=== PATIENT | male | born 1950 | race Caucasian/White ===

== ENCOUNTER 2021-03-07 10:47 | Inpatient (IN) ==
[2021-03-07] MEDS ORDERED: SODIUM CHLORIDE 0.9% 1000ML 1,000 ML IV SCH ×3 (11:30→14:19)
--- NOTE | 2021-03-07 11:41 | Emergency Department Note ---
Impression & Plan Sepsis, Anaplasmosis, Acute UTI, Elevated lactic acid level ED Provider Note NAME: BALTAZAR NAGEL AGE: 70 SEX: M : 1950 ARRIVES VIA: Walk-In INFORMANT: Patient ED PROVIDER(S): Naseem Mojica DO CHIEF COMPLAINT: fever and weak HPI: Patient is a 70-year-old male who presents the ER for not feeling well since this past Friday. He notes he felt very weak and rundown. 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 Has had fevers. Denies any chest pain or shortness of breath. Admits to vomiting. Denies any dysuria urgency or frequency but did go to the PCP and they checked a urine notes that it was infected. He was found to have a temperature of 102. He was referred over. ROS: See above HPI for pertinent positives & negatives. A total of 10 systems reviewed and were otherwise negative. PAST MEDICAL HISTORY:See Below PAST SURGICAL HISTORY:See Below FAMILY HISTORY:See Below SOCIAL HISTORY:See Below HOME MEDICATIONS:See Below ALLERGIES:See Below VITALS:See Below PHYSICAL EXAMINATION: GENERAL: Sitting up in bed, alert, ill-appearing, mild distress EYE EXAM: normal conjunctiva. PERRL and EOM's grossly intact. OROPHARYNX: no exudate, no erythema, lips, buccal mucosa, and tongue normal and mucous membranes are moist NECK: supple, no nuchal rigidity, no adenopathy, non-tender LUNGS: Clear to auscultation. Normal chest wall mechanics HEART: no murmurs, S1 normal and S2 normal ABDOMEN: abdomen soft, non-tender, normo-active bowel sounds, no masses, no rebound or guarding. UPPER EXTREMITIES: upper extremities are grossly normal. LOWER EXTREMITIES: No pitting edema. NEURO EXAM: Normal sensorium, cranial nerves II-XII grossly intact, normal speech, no gross weakness of arms, no gross weakness of legs. MEDICAL DECISION MAKING: Patient is a 70-year-old male who presents ER for fevers and weakness. IV was established blood work was obtained. Labs show no significant leukocytosis or anemia. There is a thrombocytopenia at 85. BMP with mild hyponatremia. Slight elevation of bilirubin and LFTs. Troponin was negative. TSH unremarkable. UA does show a clear UTI with nitrites. 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 Patient was given IV fluids. Patient was updated bedside. Discussed the hospitalist admitted for further work-up. Triage Nursing notes reviewed. Limited review of prior medical records performed Vital Signs: reviewed and remarkable for tachy and htn Differential diagnosis: Differential diagnosis includes etiologies such as sepsis, UTI, pneumonia, metabolic, electrolyte abnormalities, cardiac sources, intracerebral event, to xicologic, neurological, as well as others were entertained. ER treatment provided: See below Diagnostics interpreted by me: ECG: Sinus rhythm rate of 107 Normal axis Inferior Q-wave in lead III QTC 419 Cardiac Monitoring: An order was placed for continuous cardiac monitoring. The monitor shows a rate of 109 with sinus rhythm. Laboratory studies: As stated above and show below. Imaging studies: Portable AP upright 1 view the chest shows no focal infiltrate Consultation(s): Discussed with the hospitalist for further evaluation Procedures: none Critical Care: None Past Med/Surg History Medical History (Updated 03/07/21 @ 16:48 by Naseem Mojica DO) HLD (hyperlipidemia) Hypothyroidism T2DM (type 2 diabetes mellitus) Surgical History (Updated 03/07/21 @ 13:33 by Alka Johnson PA-C) History of cholecystectomy History of colonoscopy with polypectomy History of hernia surgery Family History Father Lung cancer Coronary heart disease Myocardial infarction, Onset Age: 60 Mother , 81 Myocardial infarction, Onset Age: 82 Sister COPD (chronic obstructive pulmonary disease) Brother Liver cancer Social History (Updated 03/07/21 @ 13:32 by Alka Johnson PA-C) Tobacco Type: Smokeless Tobacco (Dip or Chew) Hx Alcohol Use: Yes Alcohol type: beer Alcohol Intake Frequency: Monthly or Less Hx Substance Use: No Preferred Language: Guatemalan Communication Ability: Effective marital status: Current Living Situation: Spouse Feels Safe at Home: Yes Allergies Allergies Allergy/AdvReac Type Severity Reaction Status Date / Time No Known Allergies Allergy Unverified 03/07/21 11:49 Home Meds Home Medications Medication Instructions Recorded Confirmed aspirin 81 mg PO DAILY 03/07/21 03/07/21 atorvastatin 20 mg PO DAILY 03/07/21 03/07/21 levothyroxine 112 mcg PO DAILY 03/07/21 03/07/21 lorazepam 0.5 mg PO TID PRN 03/07/21 03/07/21 metformin 750 mg PO DAILY 03/07/21 03/07/21 multivitamin 1 tab PO DAILY 03/07/21 03/07/21 tamsulosin 0.4 mg PO DAILY 03/07/21 03/07/21 Results & Data (ED) Vital Signs Vital Signs - 24 hr 03/07/21 10:49 03/07/21 11:31 03/07/21 11:45 Temperature 36.4 C L Temperature Source Temporal Artery Scan Pulse Rate 109 H 112 H 115 H Pulse Rate [Apical] Pulse Rate from SpO2 Sensor 114 H Respiratory Rate 20 22 16 Respiratory Effort / Characteristics Respiratory Depth Respiratory Pattern Blood Pressure 154/68 H 143/85 H Blood Pressure [Right Arm] Blood Pressure Mean 96 104 Blood Pressure Mean [Right Arm] Pulse Oximetry 96 95 97 Oxygen Delivery Method Room Air Room Air Sepsis Recent Fever Within 48 Hours Yes Sepsis New/Unexplained Change in Mental Status Yes Sepsis Action Taken by Nursing No Action Required 03/07/21 11:48 03/07/21 11:51 03/07/21 12:00 Temperature Temperature Source Pulse Rate 108 H 108 H Pulse Rate [Apical] 112 H Pulse Rate from SpO2 Sensor 109 H 109 H Respiratory Rate 20 20 22 Respiratory Effort / Characteristics Non-Labored Spontaneous Respiratory Depth Normal Respiratory Pattern Regular Blood Pressure 141/75 H Blood Pressure [Right Arm] 143/85 H Blood Pressure Mean 97 Blood Pressure Mean [Right Arm] 104 Pulse Oximetry 92 96 93 Oxygen Delivery Method Room Air Sepsis Recent Fever Within 48 Hours Sepsis New/Unexplained Change in Mental Status Sepsis Action Taken by Nursing 03/07/21 12:01 03/07/21 12:30 03/07/21 12:31 Temperature Temperature Source Pulse Rate 105 H 106 H 105 H Pulse Rate [Apical] Pulse Rate from SpO2 Sensor 105 H 106 H 104 H Respiratory Rate 20 20 20 Respiratory Effort / Characteristics Respiratory Depth Respiratory Pattern Blood Pressure 143/75 H Blood Pressure [Right Arm] Blood Pressure Mean 97 Blood Pressure Mean [Right Arm] Pulse Oximetry 93 95 93 Oxygen Delivery Method Sepsis Recent Fever Within 48 Hours Sepsis New/Unexplained Change in Mental Status Sepsis Action Taken by Nursing Laboratory Data Result diagrams: 03/07/21 11:31 03/07/21 15:52 Lab Results 03/07/21 03/07/21 03/07/21 Range/Units 11:21 11:21 11:21 WBC (4.8-10.8) K/uL RBC (4.7-6.1) M/uL Hgb (14.0-18.0) g/dL Hct (42-52) % MCV (80-100) fL MCH (25-34) pg MCHC (32-36) g/dL RDW Std Deviation (36.4-46.3) fL RDW Coeff of Rosario (11.5-14.5) % Plt Count (130-400) K/uL MPV (7.4-10.4) fL Immature Gran % (Auto) % Neut % (Auto) % Lymph % (Auto) % [place] % (Auto) % Eos % (Auto) % Baso % (Auto) % Neut # (Auto) (1.4-6.5) K/uL Lymph # (Auto) (1.2-3.4) K/uL [place] # (Auto) (0.11-0.59) K/uL Eos # (Auto) (0-0.5) K/uL Baso # (Auto) (0-0.2) K/uL Immature Gran # (Auto) (0.00-0.02) K/uL Platelet Estimate (Normal) Echinocytes Peripher Smr Path Cons PT (9.0-12.0) Seconds INR (0.9-1.1) APTT (21.0-31.0) Seconds PTT Ratio Sodium (136-145) mmol/L Potassium (3.5-5.1) mmol/L Chloride (98-107) mmol/L Carbon Dioxide (21-32) mmol/L Anion Gap (3-11) BUN (7-18) mg/dl Creatinine (0.6-1.4) mg/dl Est Cr Clr Drug Dosing ml/min Est GFR ( Amer) ml/min Est GFR (Non-Af Amer) ml/min BUN/Creatinine Ratio (10-20) Glucose (70-99) mg/dl Osmolality (280-300) mOsm/kg Lactate (0.4-2.0) mmol/L Calcium (8.5-10.1) mg/dl Magnesium (1.8-2.4) mg/dl Total Bilirubin (0.2-1) mg/dl Direct Bilirubin (0-0.2) mg/dl AST (15-37) U/L ALT (12-78) U/L Alkaline Phosphatase (45-117) U/L Troponin I (0-0.045) ng/ml Total Protein (6.4-8.2) gm/dl Albumin (3.4-5.0) gm/dl Globulin (2.5-4.0) gm/dl Albumin/Globulin Ratio (0.9-2) Procalcitonin (0-0.5) ng/ml TSH (0.300-4.500) uIu/ml Urine Color [place] Urine Appearance Clear (Clear) Urine pH 5.5 (4.5-7.5) Ur Specific [place] 1.029 (1.000-1.030) Urine Protein 2+ H (Negative) Urine Glucose (UA) Negative (Negative) Urine Ketones Trace H (Negative) Urine Blood 2+ H (Negative) Urine Nitrite Positive A (Negative) Urine Bilirubin 1+ H (Negative) Urine Urobilinogen Positive H (Negative) Ur Leukocyte Esterase Trace H (Negative) Urine WBC (Auto) 1-5 (0-5) /hpf Urine RBC (Auto) 10-30 H (0-4) /hpf U Hyaline Cast (Auto) 5-10 H (0-5) /lpf U Epithel Cells (Auto) 10-20 H (0-5) /lpf Urine Bacteria (Auto) Negative (Negative) Urine Osmolality 919 H (500-800) mOsm/kg Ur Random Sodium 23 mmol/L Anaplasma Smear A. phagocytophilum DNA Anaplasma Comment Lyme Disease IgG Ab (Negative) Lyme Disease IgM Ab (Negative) COVID-19 Eval Order SARS-CoV-2 (PCR) (Negative) 03/07/21 03/07/21 03/07/21 Range/Units 11:26 11:26 11:31 WBC 6.10 (4.8-10.8) K/uL RBC 4.87 (4.7-6.1) M/uL Hgb 15.0 (14.0-18.0) g/dL Hct 41.8 L (42-52) % MCV 85.8 (80-100) fL MCH 30.8 (25-34) pg MCHC 35.9 (32-36) g/dL RDW Std Deviation 43.3 (36.4-46.3) fL RDW Coeff of Rosario 13.7 (11.5-14.5) % Plt Count 85 L (130-400) K/uL MPV 10.3 (7.4-10.4) fL Immature Gran % (Auto) 0.2 % Neut % (Auto) 82.0 % Lymph % (Auto) 11.5 % [place] % (Auto) 6.1 % Eos % (Auto) 0.0 % Baso % (Auto) 0.2 % Neut # (Auto) 5.01 (1.4-6.5) K/uL Lymph # (Auto) 0.70 L (1.2-3.4) K/uL [place] # (Auto) 0.37 (0.11-0.59) K/uL Eos # (Auto) 0.00 (0-0.5) K/uL Baso # (Auto) 0.01 (0-0.2) K/uL Immature Gran # (Auto) 0.01 (0.00-0.02) K/uL Platelet Estimate Decreased L (Normal) Echinocytes 2+ Peripher Smr Path Cons PT (9.0-12.0) Seconds INR (0.9-1.1) APTT (21.0-31.0) Seconds PTT Ratio Sodium (136-145) mmol/L Potassium (3.5-5.1) mmol/L Chloride (98-107) mmol/L Carbon Dioxide (21-32) mmol/L Anion Gap (3-11) BUN (7-18) mg/dl Creatinine (0.6-1.4) mg/dl Est Cr Clr Drug Dosing ml/min Est GFR ( Amer) ml/min Est GFR (Non-Af Amer) ml/min BUN/Creatinine Ratio (10-20) Glucose (70-99) mg/dl Osmolality (280-300) mOsm/kg Lactate (0.4-2.0) mmol/L Calcium (8.5-10.1) mg/dl Magnesium (1.8-2.4) mg/dl Total Bilirubin (0.2-1) mg/dl Direct Bilirubin (0-0.2) mg/dl AST (15-37) U/L ALT (12-78) U/L Alkaline Phosphatase (45-117) U/L Troponin I (0-0.045) ng/ml Total Protein (6.4-8.2) gm/dl Albumin (3.4-5.0) gm/dl Globulin (2.5-4.0) gm/dl Albumin/Globulin Ratio (0.9-2) Procalcitonin (0-0.5) ng/ml TSH (0.300-4.500) uIu/ml Urine Color Urine Appearance (Clear) Urine pH (4.5-7.5) Ur Specific [place] (1.000-1.030) Urine Protein (Negative) Urine Glucose (UA) (Negative) Urine Ketones (Negative) Urine Blood (Negative) Urine Nitrite (Negative) Urine Bilirubin (Negative) Urine Urobilinogen (Negative) Ur Leukocyte Esterase (Negative) Urine WBC (Auto) (0-5) /hpf Urine RBC (Auto) (0-4) /hpf U Hyaline Cast (Auto) (0-5) /lpf U Epithel Cells (Auto) (0-5) /lpf Urine Bacteria (Auto) (Negative) Urine Osmolality (500-800) mOsm/kg Ur Random Sodium mmol/L Anaplasma Smear See Comment A A. phagocytophilum DNA Anaplasma Comment Pos for Anaplasma Lyme Disease IgG Ab (Negative) Lyme Disease IgM Ab (Negative) COVID-19 Eval Order Covid19 at [facility] SARS-CoV-2 (PCR) NEGATIVE (Negative) 03/07/21 03/07/21 03/07/21 Range/Units 11:31 11:31 11:31 WBC (4.8-10.8) K/uL RBC (4.7-6.1) M/uL Hgb (14.0-18.0) g/dL Hct (42-52) % MCV (80-100) fL MCH (25-34) pg MCHC (32-36) g/dL RDW Std Deviation (36.4-46.3) fL RDW Coeff of Rosario (11.5-14.5) % Plt Count (130-400) K/uL MPV (7.4-10.4) fL Immature Gran % (Auto) % Neut % (Auto) % Lymph % (Auto) % [place] % (Auto) % Eos % (Auto) % Baso % (Auto) % Neut # (Auto) (1.4-6.5) K/uL Lymph # (Auto) (1.2-3.4) K/uL [place] # (Auto) (0.11-0.59) K/uL Eos # (Auto) (0-0.5) K/uL Baso # (Auto) (0-0.2) K/uL Immature Gran # (Auto) (0.00-0.02) K/uL Platelet Estimate (Normal) Echinocytes Peripher Smr Path Cons PT 10.4 (9.0-12.0) Seconds INR 1.0 (0.9-1.1) APTT 30.9 (21.0-31.0) Seconds PTT Ratio 1.2 Sodium 126 L (136-145) mmol/L Potassium 4.2 (3.5-5.1) mmol/L Chloride 93 L (98-107) mmol/L Carbon Dioxide 26 (21-32) mmol/L Anion Gap 7.0 (3-11) BUN 18 (7-18) mg/dl Creatinine 1.08 (0.6-1.4) mg/dl Est Cr Clr Drug Dosing 57.8 ml/min Est GFR ( Amer) 79.1 ml/min Est GFR (Non-Af Amer) 68.2 ml/min BUN/Creatinine Ratio 16.3 (10-20) Glucose 146 H (70-99) mg/dl Osmolality (280-300) mOsm/kg Lactate 2.5 H* (0.4-2.0) mmol/L Calcium 8.6 (8.5-10.1) mg/dl Magnesium 2.4 (1.8-2.4) mg/dl Total Bilirubin 2.1 H (0.2-1) mg/dl Direct Bilirubin (0-0.2) mg/dl AST 94 H (15-37) U/L ALT 49 (12-78) U/L Alkaline Phosphatase 63 (45-117) U/L Troponin I < 0.015 (0-0.045) ng/ml Total Protein 7.3 (6.4-8.2) gm/dl Albumin 3.6 (3.4-5.0) gm/dl Globulin 3.7 (2.5-4.0) gm/dl Albumin/Globulin Ratio 1.0 (0.9-2) Procalcitonin (0-0.5) ng/ml TSH (0.300-4.500) uIu/ml Urine Color Urine Appearance (Clear) Urine pH (4.5-7.5) Ur Specific [place] (1.000-1.030) Urine Protein (Negative) Urine Glucose (UA) (Negative) Urine Ketones (Negative) Urine Blood (Negative) Urine Nitrite (Negative) Urine Bilirubin (Negative) Urine Urobilinogen (Negative) Ur Leukocyte Esterase (Negative) Urine WBC (Auto) (0-5) /hpf Urine RBC (Auto) (0-4) /hpf U Hyaline Cast (Auto) (0-5) /lpf U Epithel Cells (Auto) (0-5) /lpf Urine Bacteria (Auto) (Negative) Urine Osmolality (500-800) mOsm/kg Ur Random Sodium mmol/L Anaplasma Smear A. phagocytophilum DNA Anaplasma Comment Lyme Disease IgG Ab (Negative) Lyme Disease IgM Ab (Negative) COVID-19 Eval Order SARS-CoV-2 (PCR) (Negative) 03/07/21 03/07/21 03/07/21 Range/Units 11:31 11:31 11:31 WBC (4.8-10.8) K/uL RBC (4.7-6.1) M/uL Hgb (14.0-18.0) g/dL Hct (42-52) % MCV (80-100) fL MCH (25-34) pg MCHC (32-36) g/dL RDW Std Deviation (36.4-46.3) fL RDW Coeff of Rosario (11.5-14.5) % Plt Count (130-400) K/uL MPV (7.4-10.4) fL Immature Gran % (Auto) % Neut % (Auto) % Lymph % (Auto) % [place] % (Auto) % Eos % (Auto) % Baso % (Auto) % Neut # (Auto) (1.4-6.5) K/uL Lymph # (Auto) (1.2-3.4) K/uL [place] # (Auto) (0.11-0.59) K/uL Eos # (Auto) (0-0.5) K/uL Baso # (Auto) (0-0.2) K/uL Immature Gran # (Auto) (0.00-0.02) K/uL Platelet Estimate (Normal) Echinocytes Peripher Smr Path Cons PT (9.0-12.0) Seconds INR (0.9-1.1) APTT (21.0-31.0) Seconds PTT Ratio Sodium (136-145) mmol/L Potassium (3.5-5.1) mmol/L Chloride (98-107) mmol/L Carbon Dioxide (21-32) mmol/L Anion Gap (3-11) BUN (7-18) mg/dl Creatinine (0.6-1.4) mg/dl Est Cr Clr Drug Dosing ml/min Est GFR ( Amer) ml/min Est GFR (Non-Af Amer) ml/min BUN/Creatinine Ratio (10-20) Glucose (70-99) mg/dl Osmolality 269 L (280-300) mOsm/kg Lactate (0.4-2.0) mmol/L Calcium (8.5-10.1) mg/dl Magnesium (1.8-2.4) mg/dl Total Bilirubin (0.2-1) mg/dl Direct Bilirubin (0-0.2) mg/dl AST (15-37) U/L ALT (12-78) U/L Alkaline Phosphatase (45-117) U/L Troponin I (0-0.045) ng/ml Total Protein (6.4-8.2) gm/dl Albumin (3.4-5.0) gm/dl Globulin (2.5-4.0) gm/dl Albumin/Globulin Ratio (0.9-2) Procalcitonin 0.42 (0-0.5) ng/ml TSH (0.300-4.500) uIu/ml Urine Color Urine Appearance (Clear) Urine pH (4.5-7.5) Ur Specific [place] (1.000-1.030) Urine Protein (Negative) Urine Glucose (UA) (Negative) Urine Ketones (Negative) Urine Blood (Negative) Urine Nitrite (Negative) Urine Bilirubin (Negative) Urine Urobilinogen (Negative) Ur Leukocyte Esterase (Negative) Urine WBC (Auto) (0-5) /hpf Urine RBC (Auto) (0-4) /hpf U Hyaline Cast (Auto) (0-5) /lpf U Epithel Cells (Auto) (0-5) /lpf Urine Bacteria (Auto) (Negative) Urine Osmolality (500-800) mOsm/kg Ur Random Sodium mmol/L Anaplasma Smear Cancelled A. phagocytophilum DNA Anaplasma Comment Lyme Disease IgG Ab (Negative) Lyme Disease IgM Ab (Negative) COVID-19 Eval Order SARS-CoV-2 (PCR) (Negative) 03/07/21 03/07/21 03/07/21 Range/Units 11:31 11:31 11:31 WBC (4.8-10.8) K/uL RBC (4.7-6.1) M/uL Hgb (14.0-18.0) g/dL Hct (42-52) % MCV (80-100) fL MCH (25-34) pg MCHC (32-36) g/dL RDW Std Deviation (36.4-46.3) fL RDW Coeff of Rosario (11.5-14.5) % Plt Count (130-400) K/uL MPV (7.4-10.4) fL Immature Gran % (Auto) % Neut % (Auto) % Lymph % (Auto) % [place] % (Auto) % Eos % (Auto) % Baso % (Auto) % Neut # (Auto) (1.4-6.5) K/uL Lymph # (Auto) (1.2-3.4) K/uL [place] # (Auto) (0.11-0.59) K/uL Eos # (Auto) (0-0.5) K/uL Baso # (Auto) (0-0.2) K/uL Immature Gran # (Auto) (0.00-0.02) K/uL Platelet Estimate (Normal) Echinocytes Peripher Smr Path Cons PT (9.0-12.0) Seconds INR (0.9-1.1) APTT (21.0-31.0) Seconds PTT Ratio Sodium (136-145) mmol/L Potassium (3.5-5.1) mmol/L Chloride (98-107) mmol/L Carbon Dioxide (21-32) mmol/L Anion Gap (3-11) BUN (7-18) mg/dl Creatinine (0.6-1.4) mg/dl Est Cr Clr Drug Dosing ml/min Est GFR ( Amer) ml/min Est GFR (Non-Af Amer) ml/min BUN/Creatinine Ratio (10-20) Glucose (70-99) mg/dl Osmolality (280-300) mOsm/kg Lactate (0.4-2.0) mmol/L Calcium (8.5-10.1) mg/dl Magnesium (1.8-2.4) mg/dl Total Bilirubin (0.2-1) mg/dl Direct Bilirubin (0-0.2) mg/dl AST (15-37) U/L ALT (12-78) U/L Alkaline Phosphatase (45-117) U/L Troponin I (0-0.045) ng/ml Total Protein (6.4-8.2) gm/dl Albumin (3.4-5.0) gm/dl Globulin (2.5-4.0) gm/dl Albumin/Globulin Ratio (0.9-2) Procalcitonin (0-0.5) ng/ml TSH 2.240 (0.300-4.500) uIu/ml Urine Color Urine Appearance (Clear) Urine pH (4.5-7.5) Ur Specific [place] (1.000-1.030) Urine Protein (Negative) Urine Glucose (UA) (Negative) Urine Ketones (Negative) Urine Blood (Negative) Urine Nitrite (Negative) Urine Bilirubin (Negative) Urine Urobilinogen (Negative) Ur Leukocyte Esterase (Negative) Urine WBC (Auto) (0-5) /hpf Urine RBC (Auto) (0-4) /hpf U Hyaline Cast (Auto) (0-5) /lpf U Epithel Cells (Auto) (0-5) /lpf Urine Bacteria (Auto) (Negative) Urine Osmolality (500-800) mOsm/kg Ur Random Sodium mmol/L Anaplasma Smear A. phagocytophilum DNA Cancelled Anaplasma Comment Lyme Disease IgG Ab Negative (Negative) Lyme Disease IgM Ab Negative (Negative) COVID-19 Eval Order SARS-CoV-2 (PCR) (Negative) 03/07/21 Range/Units 11:31 WBC (4.8-10.8) K/uL RBC (4.7-6.1) M/uL Hgb (14.0-18.0) g/dL Hct (42-52) % MCV (80-100) fL MCH (25-34) pg MCHC (32-36) g/dL RDW Std Deviation (36.4-46.3) fL RDW Coeff of Rosario (11.5-14.5) % Plt Count (130-400) K/uL MPV (7.4-10.4) fL Immature Gran % (Auto) % Neut % (Auto) % Lymph % (Auto) % [place] % (Auto) % Eos % (Auto) % Baso % (Auto) % Neut # (Auto) (1.4-6.5) K/uL Lymph # (Auto) (1.2-3.4) K/uL [place] # (Auto) (0.11-0.59) K/uL Eos # (Auto) (0-0.5) K/uL Baso # (Auto) (0-0.2) K/uL Immature Gran # (Auto) (0.00-0.02) K/uL Platelet Estimate (Normal) Echinocytes Peripher Smr Path Cons PT (9.0-12.0) Seconds INR (0.9-1.1) APTT (21.0-31.0) Seconds PTT Ratio Sodium (136-145) mmol/L Potassium (3.5-5.1) mmol/L Chloride (98-107) mmol/L Carbon Dioxide (21-32) mmol/L Anion Gap (3-11) BUN (7-18) mg/dl Creatinine (0.6-1.4) mg/dl Est Cr Clr Drug Dosing ml/min Est GFR ( Amer) ml/min Est GFR (Non-Af Amer) ml/min BUN/Creatinine Ratio (10-20) Glucose (70-99) mg/dl Osmolality (280-300) mOsm/kg Lactate (0.4-2.0) mmol/L Calcium (8.5-10.1) mg/dl Magnesium (1.8-2.4) mg/dl Total Bilirubin (0.2-1) mg/dl Direct Bilirubin 0.7 H (0-0.2) mg/dl AST (15-37) U/L ALT (12-78) U/L Alkaline Phosphatase (45-117) U/L Troponin I (0-0.045) ng/ml Total Protein (6.4-8.2) gm/dl Albumin (3.4-5.0) gm/dl Globulin (2.5-4.0) gm/dl Albumin/Globulin Ratio (0.9-2) Procalcitonin (0-0.5) ng/ml TSH (0.300-4.500) uIu/ml Urine Color Urine Appearance (Clear) Urine pH (4.5-7.5) Ur Specific [place] (1.000-1.030) Urine Protein (Negative) Urine Glucose (UA) (Negative) Urine Ketones (Negative) Urine Blood (Negative) Urine Nitrite (Negative) Urine Bilirubin (Negative) Urine Urobilinogen (Negative) Ur Leukocyte Esterase (Negative) Urine WBC (Auto) (0-5) /hpf Urine RBC (Auto) (0-4) /hpf U Hyaline Cast (Auto) (0-5) /lpf U Epithel Cells (Auto) (0-5) /lpf Urine Bacteria (Auto) (Negative) Urine Osmolality (500-800) mOsm/kg Ur Random Sodium mmol/L Anaplasma Smear A. phagocytophilum DNA Anaplasma Comment Lyme Disease IgG Ab (Negative) Lyme Disease IgM Ab (Negative) COVID-19 Eval Order SARS-CoV-2 (PCR) (Negative) Administered Medications Discontinued Medications Sodium Chloride (Nss 1000ml) 1,000 mls @ 999 mls/hr IV .Q1H1M DORIAN Stop: 03/07/21 13:27 Last Infusion: 03/07/21 12:48 Dose: 0 mls/hr Documented by: [id number] Admin: 03/07/21 11:47 Dose: 999 mls/hr Documented by: [id number] Sodium Chloride (Nss 1000ml) 1,000 mls @ 999 mls/hr IV .Q1H1M DORIAN Stop: 03/07/21 12:28 Last Infusion: 03/07/21 12:48 Dose: 0 mls/hr Documented by: [id number] Admin: 03/07/21 11:47 Dose: 999 mls/hr Documented by: [id number] Ceftriaxone Sodium (Rocephin) 2,000 mg in 70 mls @ 140 mls/hr IV NOW STA Stop: 03/07/21 13:29 Last Infusion: 03/07/21 13:43 Dose: 0 mls/hr Documented by: [id number] Admin: 03/07/21 13:13 Dose: 140 mls/hr Documented by: [id number] Imaging Data Radiologist's Impression: Chest X-Ray 03/07/21 11:27 XR chest 1V portable CLINICAL HISTORY: SEPSIS COMPARISON STUDY: 03/08/2013 FINDINGS: The cardiac and mediastinal contours are normal. There is no evidence of focal pulmonary consolidation. There is no evidence of failure. No pleural effusions are visualized.[ IMPRESSION: No active disease in the chest. ACT 112: Negative or not required by law. Electronically signed by: Josué Pratt M.D. 03/07/2021 12:03 PM Discharge Plan Visit Data Chief Complaint: Infection Stated Complaint: INFECTON ED Provider: Naseem Mojica Discharge Problem: Sepsis, Anaplasmosis, Acute UTI, Elevated lactic acid level Patient Disposition: Admitted As Inpatient Discharge Instructions Interventions: ED Discharge Assessment Last Done: 03/07/21 13:52 Discharge Problem: Sepsis Qualifiers: Sepsis type: sepsis due to unspecified organism Sepsis acute organ dysfunction status: unspecified Qualified Code(s): A41.9 - Sepsis, unspecified organism
[2021-03-07 11:42] LABS: Appearance Urine Clear (Clear); Bacteria Urine Automated Negative (Negative); Blood Urine 2+ (Negative); Color Urine Orange; Glucose Urine UA Negative (Negative); Ketones Urine Trace (Negative); Leukocyte Esterase Urine Trace (Negative); Nitrite Urine Positive (Negative); Protein Urine 2+ (Negative); Specific Gravity Urine 1.029 (1.000-1.030); Urobilinogen Urine Positive (Negative); pH Urine 5.5 (4.5-7.5)
[2021-03-07 12:05] LABS: Bilirubin Urine 1+ (Negative)
--- NOTE | 2021-03-07 12:05 | XRay Report ---
XR chest 1V portable CLINICAL HISTORY: SEPSIS COMPARISON STUDY: 03/08/2013 FINDINGS: The cardiac and mediastinal contours are normal. There is no evidence of focal pulmonary co nsolidation. There is no evidence of failure. No pleural effusions are visualized.[ IMPRESSION: No active disease in the chest. ACT 112: Negative or not required by law. Electronically signed by: Josué Pratt M.D. 03/07/2021 12:03 PM
[2021-03-07 12:06] LABS: Alanine Aminotransferase 49 U/L (12-78); Albumin Level 3.6 gm/dl (3.4-5.0); Aspartate Aminotransferase 94 U/L (15-37); BUN Creatinine Ratio 16.3 (10-20); Blood Urea Nitrogen 18 mg/dl (7-18); Calcium 8.6 mg/dl (8.5-10.1); Carbon Dioxide 26 mmol/L (21-32); Chloride 93 mmol/L (98-107); Creatinine Clr Calc Pharmacy 57.8 ml/min; Est GFR (African American) 79.1 ml/min; Est GFR (Non-African American) 68.2 ml/min; Glucose 146 mg/dl (70-99); Magnesium 2.4 mg/dl (1.8-2.4); Potassium 4.2 mmol/L (3.5-5.1); Sodium 126 mmol/L (136-145)
[2021-03-07 12:07] LABS: Partial Thromboplastin Ratio 1.2; Partial Thromboplastin Time 30.9 Seconds (21.0-31.0); Prothrombin Time 10.4 Seconds (9.0-12.0)
[2021-03-07 12:11] LABS: Alkaline Phosphatase 63 U/L (45-117); Bilirubin,Total 2.1 mg/dl (0.2-1); Globulin 3.7 gm/dl (2.5-4.0); Total Protein 7.3 gm/dl (6.4-8.2); Troponin I < 0.015 ng/ml (0-0.045)
[2021-03-07 12:19] LABS: Basophils # (auto) 0.01 K/uL (0-0.2); Basophils % (auto) 0.2 %; Echinocytes 2+; Hematocrit (blood only) 41.8 % (42-52); Immature Granulocytes # (auto) 0.01 K/uL (0.00-0.02); Immature Granulocytes % (auto) 0.2 %; Lymphocytes % (auto) 11.5 %; Mean Corpuscular Hemoglobin 30.8 pg (25-34); Mean Corpuscular Hgb Conc 35.9 g/dL (32-36); Mean Corpuscular Volume 85.8 fL (80-100); Mean Platelet Volume 10.3 fL (7.4-10.4); Monocytes # (auto) 0.37 K/uL (0.11-0.59); Monocytes % (auto) 6.1 %; Neutrophils # (auto) 5.01 K/uL (1.4-6.5); Platelet Count 85 K/uL (130-400); Platelet Estimate Decreased (Normal); RDW Coefficient of Variation 13.7 % (11.5-14.5); RDW Standard Deviation 43.3 fL (36.4-46.3); Red Blood Count 4.87 M/uL (4.7-6.1)
[2021-03-07] MEDS ORDERED: cefTRIAXone SODIUM 2,000 MG/70 ML BAG IV STA (13:00)
--- NOTE | 2021-03-07 13:09 | History & Physical Report ---
Date of Service March 07, 2021 Assessment & Plan (1) Anaplasmosis: (2) Sepsis: (3) Infectious encephalopathy: (4) Lactic acidosis: This is a 70 yr old M who has a significant PMH of T2DM, HLD, and hypothyroidism who presents to ED due to feeling tired and weak x 5 days. Pt being admitted due to possible sepsis. Elevated temp in clinic 102F, and tachycardia in ED. His WBC & RR WNL. Pt with other indicators of sepsis including lactic acidosis, low platelets, elevated total bili and procalcitonin. Received 2 L of IVF in ED. 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 rash, last known tick bite 5 days ago admit to PCU continue IV rocephin 2g daily lyme and anaplasma screen ordered --> anaplasma smear + for intracytoplasmic inclusion bodies - add doxycycline 100mg po bid urine/blood cultures pending IVF 110 cc/hr x 1 L repeat bmp @ 1600 and q6h lactic acid repeat ordered - now 1.8 neuro checks q4h (5) Acute hyponatremia: hyponatremia Hypochloremia Na 126 likely in setting of acute dehydration due to poor po intake serum osm, urine osm, urine na received 2L of IVF repeat bmp @ 1600 and q6 likely playing factor into encephalopathy (6) Thrombocytopenia: plt 85 2/2 to anaplasmosis monitor closely (7) T2DM (type 2 diabetes mellitus): Hold Metformin Insulin sliding scale per protocol A1c in a.m., last on 11/02/2020 6.3 (8) Hypothyroidism: Continue levothyroxine Check TSH (9) HLD (hyperlipidemia): Continue atorvastatin Monitor LFTs, AST mildly elevated at 94 (10) DVT prophylaxis: SQ Lovenox, monitor plt Dispo:PCU PCP: Dr. Mayra Bearden FULL CODE Patient was seen and examined in collaboration with Dr. Dupree, please see addendum History of Present Illness Chief Complaint: Tired and weak x 5 days. Primary Care Provider: Chad Oh DO This is a 70 yr old M who has a significant PMH of T2DM, HLD, and hypothyroidism who presents to ED due to feeling tired and weak x 5 days. Sx started on Friday when he became increasingly weak and tired. His pulled off a tick on his right leg. She states it was attached but wasn't engorged. Overall poor appetite and at bedside states, "not acting himself." She feels his thinking is off and having trouble concentrating. She notices he is getting more confused. He denies fever but did have fever in clinic today of 102. Pt states he is very uncomfortable. Occasionally feels dizzy. He c/o in creased urinary urgency. He denies chills, sweats, syncope, cough, URI sx, chest pain, sob, palpitations, diarrhea, abdominal pain, dysuria and hematuria. He has never felt like this in the past. Patient was seen in clinic today secondary to above symptoms and was referred to ED due to concern for possible urosepsis secondary to abnormal urinalysis and patient meeting SIRS criteria. Of significance he was also seen in clinic on 02/23 secondary to urinary hesitancy in which he was started on Flomax. In ED patient remained hemodynamically stable although he was tachycardic. Patient did meet sepsis criteria on admission secondary to documented fever in clinic, tachycardia, thrombocytopenia, lactic acid 2.5 and total bili 2.1. His procalcitonin was mildly elevated at 0.42. His urinalysis was positive for protein, nitrates, bilirubin leukocyte esterase, RBC. Chest x-ray was negative for acute abnormality. His Covid 19 swab was negative. In ED he received 2 L of IV fluid as well as 2 g IV Rocephin. Allergies Allergy/AdvReac Type Severity Reaction Status Date / Time No Known Allergies Allergy Unverified 03/07/21 11:49 Home Medications Medication Instructions Recorded Confirmed Type aspirin 81 mg PO DAILY 03/07/21 03/07/21 History atorvastatin 20 mg PO DAILY 03/07/21 03/07/21 History levothyroxine 112 mcg PO DAILY 03/07/21 03/07/21 History lorazepam 0.5 mg PO TID PRN 03/07/21 03/07/21 History metformin 750 mg PO DAILY 03/07/21 03/07/21 History multivitamin 1 tab PO DAILY 03/07/21 03/07/21 History tamsulosin 0.4 mg PO DAILY 03/07/21 03/07/21 History Past Med/Surg History Medical History (Updated 03/07/21 @ 16:48 by Naseem Mojica DO) HLD (hyperlipidemia) Hypothyroidism T2DM (type 2 diabetes mellitus) Surgical History (Updated 03/07/21 @ 13:33 by Alka Johnson PA-C) History of cholecystectomy History of colonoscopy with polypectomy History of hernia surgery Family History Father Lung cancer Coronary heart disease Myocardial infarction, Onset Age: 60 Mother , 81 Myocardial infarction, Onset Age: 82 Sister COPD (chronic obstructive pulmonary disease) Brother Liver cancer Social History (Updated 03/07/21 @ 13:32 by Alka Johnson PA-C) Tobacco Type: Smokeless Tobacco (Dip or Chew) Hx Alcohol Use: Yes Alcohol type: beer Alcohol Intake Frequency: Monthly or Less Hx Substance Use: No Preferred Language: Greenlandic Communication Ability: Effective marital status: Current Living Situation: Spouse Feels Safe at Home: Yes Review of Systems Review of Systems: All systems reviewed & are unremarkable except as noted in HPI & below Physical Exam Physical Exam: Constitutional: WD/WN, vitals as above, appears uncomfortable but no acute distress NAD, sitting up in bed, answers questions appropriately Head: Normocephalic, Atraumatic Eyes: PERRL, conjunctivae normal, anicteric sclerae ENMT: external ear and nose normal, oropharynx normal Neck: trachea midline, no thyromegaly normal visual inspection Respiratory: normal respiratory effort, lungs clear to auscultation, no wheeze, rales, rhonchi. Normal insp/exp effort, no accessory muscle use Cardiovascular: Tachycardic rate, regular rhythm, no murmur, no edema Vessels: no JVD or carotid bruit Chest: normal inspection of chest Abdomen: Protuberant abdomen, normal bowel sounds, soft, nontender, no hepatosplenomegaly appreciated Musculoskeletal: no cyanosis or clubbing, extremities motor strength 5/5 Skin: l ividio reticularis of lower ext, no rashes, warm and dry normal turgor Neurologic: PERRL, EOMI, accommodation nl, no face palsy, no dysarthria CN's II-XI intact bilaterally and moves all extremities Psychiatric: A+Ox3 except does not know the year, euthymic affect Lymphatic: no cervical or axillary lymphadenopathy : deferred Results & Data Results & Data ([facility]) Vital Signs (Past 12 Hours) Vital Signs Temp Pulse Pulse Resp BP BP Pulse Ox 03/07/21 12:31 105 H 20 93 03/07/21 12:30 106 H 20 143/75 H 95 03/07/21 12:01 105 H 20 93 03/07/21 12:00 108 H 22 141/75 H 93 03/07/21 11:51 108 H 20 96 03/07/21 11:48 112 H 20 143/85 H 92 03/07/21 11:45 115 H 16 143/85 H 97 03/07/21 11:31 112 H 22 95 03/07/21 10:49 36.4 C L 109 H 20 154/68 H 96 Diagnostic Findings Chest X-Ray 03/07/21 11:27 XR chest 1V portable CLINICAL HISTORY: SEPSIS COMPARISON STUDY: 03/08/2013 FINDINGS: The cardiac and mediastinal contours are normal. There is no evidence of focal pulmonary consolidation. There is no evidence of failure. No pleural effusions are visualized.[ IMPRESSION: No active disease in the chest. ACT 112: Negative or not required by law. Electronically signed by: Josué Pratt M.D. 03/07/2021 12:03 PM Medications Administered Sodium Chloride (Nss 1000ml) 1,000 mls @ 999 mls/hr IV .Q1H1M DORIAN Stop: 03/07/21 13:27 Last Infusion: 03/07/21 12:48 Dose: 0 mls/hr Documented by: [id number] Admin: 03/07/21 11:47 Dose: 999 mls/hr Documented by: [id number] Discontinued Medications Sodium Chloride (Nss 1000ml) 1,000 mls @ 999 mls/hr IV .Q1H1M DORIAN Stop: 03/07/21 12:28 Last Infusion: 03/07/21 12:48 Dose: 0 mls/hr Documented by: [id number] Admin: 03/07/21 11:47 Dose: 999 mls/hr Documented by: [id number] ECG Rate (beats per minute): 107 Rhythm: sinus tachycardia COVID-19 Results Results COVID-19 Adm Lab Results: RBC 4.87 M/uL (4.7-6.1) 03/07/21 WBC 6.10 K/uL (4.8-10.8) 03/07/21 Hgb 15.0 g/dL (14.0-18.0) 03/07/21 Hct 41.8 % (42-52) L 03/07/21 Plt Count 85 K/uL (130-400) L 03/07/21 Neutrophils (%) (Auto) 82.0 % 03/07/21 Lymphocytes (%) (Auto) 11.5 % 03/07/21 Monocytes # (Auto) 0.37 K/uL (0.11-0.59) 03/07/21 Eosinophils # (Auto) 0.00 K/uL (0-0.5) 03/07/21 Immature Granulocyte % (Auto) 0.2 % 03/07/21 Neutrophils # (Auto) 5.01 K/uL (1.4-6.5) 03/07/21 Lymphocytes # (Auto) 0.70 K/uL (1.2-3.4) L 03/07/21 Monocytes # (Auto) 0.37 K/uL (0.11-0.59) 03/07/21 Eosinophils # (Auto) 0.00 K/uL (0-0.5) 03/07/21 Basophils # (Auto) 0.01 K/uL (0-0.2) 03/07/21 Immature Granulocyte # (Auto) 0.01 K/uL (0.00-0.02) 03/07/21 Echinocytes 2+ 03/07/21 Na 130 mmol/L (136-145) L 03/07/21 K 4.0 mmol/L (3.5-5.1) 03/07/21 Cl 99 mmol/L (98-107) 03/07/21 CO2 25 mmol/L (21-32) 03/07/21 Anion Gap 6.0 (3-11) 03/07/21 BUN 16 mg/dl (7-18) 03/07/21 Creatinine 0.89 mg/dl (0.6-1.4) 03/07/21 BUN/Creatinine Ratio 17.9 (10-20) 03/07/21 Glucose Level 135 mg/dl (70-99) H 03/07/21 Ca 7.8 mg/dl (8.5-10.1) L 03/07/21 Total Bilirubin 2.1 mg/dl (0.2-1) H 03/07/21 Direct Bilirubin 0.7 mg/dl (0-0.2) H 03/07/21 AST/SGOT 94 U/L (15-37) H 03/07/21 ALT/SGPT 49 U/L (12-78) 03/07/21 Alkaline Phosphatase 63 U/L (45-117) 03/07/21 Total Protein 7.3 gm/dl (6.4-8.2) 03/07/21 Albumin 3.6 gm/dl (3.4-5.0) 03/07/21 Globulin 3.7 gm/dl (2.5-4.0) 03/07/21 Albumin/Globulin Ratio 1.0 (0.9-2) 03/07/21 Troponin I < 0.015 ng/ml (0-0.045) 03/07/21 Procalcitonin 0.42 ng/ml (0-0.5) 03/07/21 PTT 30.9 Seconds (21.0-31.0) 03/07/21 INR 1.0 (0.9-1.1) 03/07/21 COVID-19 PCR NEGATIVE (Negative) 03/07/21 Chest X-Ray 03/07/21 Code Status & VTE Plan Code Status Full Code VTE Prophylaxis Plan VTE Prophylaxis will be ordered: Yes Supervising Physician Co-Signing Physician Notes Patient is a 70-year-old male with history of diabetes mellitus, hypothyroidism and other medical problems presents with history of generalized weakness, tiredness, decreased concentration, and intermittent confusion since 5 days duration. Patient admits to having tick bite on his right leg noticed by his who apparently removed the tick. He also noted to have fever and intermittently feels dizzy and decreased oral intake. Please review HPI for complete details of presentation. Currently is oriented x3 while in ED. He denies any headache, neck rigidity, focal weakness, change in vision. His sodium levels were noted to be 126. Urinalysis looks abnormal but denies any dysuria, hematuria, increased urinary frequency. Lactic acid level elevated 2.5, platelets decreased at 85K. On exam patient is moderately built and nourished, no distress, normocephalic atraumatic, lungs are clear to auscultation, normal breath sounds, S1-S2, no murmur, no pedal edema, abdomen soft, nontender,+ abdominal hernia, alert, awake, oriented, grossly no focal deficits,+ right lower extremity small erythematous lesion--site of tick bite. Patient is admitted for management of possible sepsis secondary to Lyme's dis ease/anaplasmosis. Also to rule out a urinary tract infection. Acute metabolic encephalopathy likely secondary to infection, hyponatremia. Will start on Rocephin, doxycycline. Will obtain Lyme screen, peripheral smear for anaplasmosis. Will closely monitor sodium levels and adjust fluids as needed. Neurochecks requested. Monitor platelet count. Blood and urine cultures obtained. PT OT prior to discharge. I personally reviewed the record. Patient is interviewed and examined at bedside. Patient's care is coordinated with Alka Johnson PA-C. Please refer to the documentation above for details of patient's presentation and for discussion of other issues.
[2021-03-07 13:42] LABS: Lyme Ab IgG w/WB Rflx Negative (Negative); Lyme Ab IgM w/WB Rflx Negative (Negative)
--- NOTE | 2021-03-07 13:50 | Electrocardiogram Report ---
Test Reason : Blood Pressure : / mmHG Vent. Rate : 107 BPM Atrial Rate : 107 BPM P-R Int : 138 ms QRS Dur : 102 ms QT Int : 314 ms P-R-T Axes : 039 021 067 degrees QTc Int : 419 ms Sinus tachycardia Nonspecific ST abnormality Abnormal ECG When compared with ECG of 08-MAR-2013 15:43, No significant change was found Confirmed by Calvin Storey ([id number]) on 03/07/2021 1:49:29 PM Referred By: REFERRED SELF Confirmed By:Calvin Storey
[2021-03-07] MEDS ORDERED: DOXYCYCLINE HYCLATE 100 MG CAP PO STA (14:11)
[2021-03-07] MEDS ORDERED: GLUCOSE 40% GEL 15 GM TUBE PO PRN (14:19)
[2021-03-07] MEDS ORDERED: GLUCOSE 10 TABS/TUBE PO PRN (14:19)
[2021-03-07] MEDS ORDERED: ALUMINUM/MAGNESIUM SUSP 30 ML UDC PO PRN (14:19)
[2021-03-07] MEDS ORDERED: GLUCAGON FOR INJ 1 MG VIAL SQ PRN (14:19)
[2021-03-07] MEDS ORDERED: POLYETHYLENE (MIRALAX) 17 GM PACK PO PRN (14:19)
[2021-03-07] MEDS ORDERED: LORazepam 0.5 MG TAB PO PRN (14:19)
[2021-03-07] MEDS ORDERED: ONDANSETRON INJ 2 MG/ML 2 ML VIAL IV PRN (14:19)
[2021-03-07] MEDS ORDERED: MAGNESIUM HYDROXIDE SUSP 30 ML UDC PO PRN (14:19)
[2021-03-07] MEDS ORDERED: DEXTROSE 50% 50 ML SYRINGE IV PRN (14:19)
[2021-03-07] MEDS ORDERED: CARBOHYDRATES FOR HYPOGLYCEMIA PO PRN (14:19)
[2021-03-07 14:23] LABS: Anaplasmosis Smear(Rpt to DOH) Pos for Anaplasma
[2021-03-07 16:26] LABS: BUN Creatinine Ratio 17.9 (10-20); Calcium 7.8 mg/dl (8.5-10.1); Creatinine Clr Calc Pharmacy 70.1 ml/min; Est GFR (Non-African American) 85.4 ml/min
[2021-03-07] MEDS: ACETAMINOPHEN 325 MG TAB PO PRN ×2 (16:50→20:52)
[2021-03-07] MEDS: INSULIN ASPART 100 UNITS/ML 3 ML PEN SC SCH ×2 (16:51→21:49)
[2021-03-07] MEDS: ENOXAPARIN INJ 40 MG/0.4 ML SYR SQ SCH (20:46)
[2021-03-07] MEDS ORDERED: DOXYCYCLINE HYCLATE 100 MG CAP PO SCH (22:00)
[2021-03-07 23:27] LABS: BUN Creatinine Ratio 19.5 (10-20); Calcium 7.4 mg/dl (8.5-10.1); Est GFR (African American) 104.5 ml/min; Est GFR (Non-African American) 90.2 ml/min; Potassium 3.6 mmol/L (3.5-5.1)
[2021-03-08 05:06] LABS: Albumin Globulin Ratio 0.8 (0.9-2); Albumin Level 2.6 gm/dl (3.4-5.0); BUN Creatinine Ratio 23.5 (10-20); Bilirubin,Total 1.3 mg/dl (0.2-1); Calcium 7.3 mg/dl (8.5-10.1); Creatinine Clr Calc Pharmacy 107.6 ml/min; Est GFR (African American) 118.1 ml/min; Est GFR (Non-African American) 101.9 ml/min; Globulin 3.2 gm/dl (2.5-4.0); Magnesium 2.7 mg/dl (1.8-2.4); Total Protein 5.8 gm/dl (6.4-8.2)
[2021-03-08] MEDS: LEVOTHYROXINE SODIUM 112 MCG TABLET PO SCH (05:31)
[2021-03-08 05:33] LABS: Hemoglobin 12.9 g/dL (14.0-18.0); RDW Coefficient of Variation 14.2 % (11.5-14.5); RDW Standard Deviation 45.1 fL (36.4-46.3); White Blood Count 5.83 K/uL (4.8-10.8)
[2021-03-08 05:41] LABS: Mean Corpuscular Hgb Conc 34.9 g/dL (32-36); Mean Platelet Volume 10.5 fL (7.4-10.4); Platelet Count 57 K/uL (130-400)
[2021-03-08 06:05] LABS: Basophils # (auto) 0.13 K/uL (0-0.2); Basophils % (auto) 2.2 %; Echinocytes 1+; Giant Platelets 1+; Immature Granulocytes # (auto) 0.02 K/uL (0.00-0.02); Immature Granulocytes % (auto) 0.3 %; Lymphocytes # (auto) 2.06 K/uL (1.2-3.4); Lymphocytes % (auto) 35.3 %; Monocytes % (auto) 8.6 %; Neutrophils # (auto) 3.12 K/uL (1.4-6.5); Neutrophils % (auto) 53.6 %
[2021-03-08 08:18] LABS: Estimated Average Glucose 140 mg/dl; Hemoglobin A1C 6.5 % (4.5-5.6)
[2021-03-08] MEDS: INSULIN ASPART 100 UNITS/ML 3 ML PEN SC SCH ×4 (08:37→20:57)
[2021-03-08] MEDS: TAMSULOSIN HCL 0.4 MG CAP PO SCH (08:38)
[2021-03-08] MEDS: ASPIRIN 81 MG ECTAB PO SCH (08:38)
[2021-03-08] MEDS: ATORVASTATIN 20 MG TAB PO SCH (08:38)
[2021-03-08] MEDS ORDERED: cefTRIAXone SODIUM 2,000 MG in DEXTROSE 5% 50 ML IV SCH (09:00)
[2021-03-08] MEDS: DOXYCYCLINE HYCLATE 100 MG in DEXTROSE 5% 100 ML IV SCH ×2 (09:47→21:03)
[2021-03-08 10:52] LABS: BUN Creatinine Ratio 23.4 (10-20); Calcium 8.2 mg/dl (8.5-10.1); Est GFR (African American) 112.7 ml/min; Est GFR (Non-African American) 97.2 ml/min; Potassium 3.5 mmol/L (3.5-5.1)
--- NOTE | 2021-03-08 17:05 | Hospitalist Progress Note ---
Date of Service March 08, 2021 Assessment & Plan (1) Anaplasmosis: Admitted with extreme weakness and tiredness History of tick bite 5 days back Peripheral blood smear is positive for inclusion bodies specific for anaplasmosis Lyme titer has been negative Has been on intravenous doxycycline Clinically much better (2) Sepsis: (3) Infectious encephalopathy: (4) Lactic acidosis: This is a 70 yr old M who has a significant PMH of T2DM, HLD, and hypothyroidism who presents to ED due to feeling tired and weak x 5 days. Pt being admitted due to possible sepsis. Elevated temp in clinic 102F, and tachycardia in ED. His WBC & RR WNL. Pt with other indicators of sepsis including lactic acidosis, low platelets, elevated total bili and procalcitonin. Received 2 L of IVF in ED. 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 rash, last known tick bite 5 days ago (5) Acute hyponatremia: hyponatremia Hypochloremia Na 126 likely in setting of acute dehydration due to poor po intake serum osm-low at 269, urine osm-high at 9 1 9, urine na-23 received 2L of IVF Sodium has been improving and is normalized (6) Thrombocytopenia: plt 85 2/2 to anaplasmosis Platelet count has decreased to 57 (7) T2DM (type 2 diabetes mellitus): Hold Metformin Insulin sliding scale per protocol A1c in a.m., last on 11/02/2020 6.3 (8) Hypothyroidism: Continue levothyroxine Check TSH-normal (9) HLD (hyperlipidemia): Continue atorvastatin Monitor LFTs, AST mildly elevated at 94 (10) DVT prophylaxis: SQ Lovenox, monitor plt Dispo:PCU PCP: Dr. Mayra Bearden FULL CODE Admission and Anticipated Discharge Date Admission Date: March 07, 2021 Subjective 03/08/2021 The patient was seen and examined in telemetry unit He was admitted with extreme weakness and tiredness with a history of tick bite in the right leg He was noted to have anaplasmosis and has been feeling much better since admission Denies any significant symptoms Review of Systems Review of Systems: All systems reviewed and are unremarkable except as noted below Musculoskeletal: + muscle weakness Neurologic: + generalized weakness Physical Exam Physical Exam: Lying in bed comfortably Constitutional: well developed, well nourished and + ill appearing Eyes: PERRL, conjunctivae normal, anicteric sclerae ENMT: external ear and nose normal, oropharynx normal Neck: trachea midline, no thyromegaly Respiratory: no respiratory distress Auscultation: lungs clear to auscultation bilaterally Cardiovascular: Rate/Rhythm: regular rate and regular rhythm Heart Sounds: no murmur Extremities: no edema Gastrointestinal (Abdomen): Inspection/Auscultation: normal bowel sounds; abdomen not distended Percussion/Palpation: abdomen soft; abdomen nontender Musculoskeletal: No acute arthritis in any joint Skin: Evidence of tick bite right lower leg. No bull's-eye lesion Neurologic: Alert, awake and oriented x3. Generally weak but no focal neuro deficit Psychiatric: A+Ox3, euthymic affect Lymphatic: no cervical or axillary lymphadenopathy Results & Data Results & [facility] ([facility]) Vital Signs (Past 12 Hours) Vital Signs Temp Pulse Pulse Resp BP Pulse Ox Pulse Ox 03/08/21 15:30 36.4 C L 77 17 126/75 96 03/08/21 14:19 95 03/08/21 11:27 92 03/08/21 11:05 36.6 C 77 18 116/75 96 03/08/21 08:00 79 03/08/21 07:30 36.6 C 87 18 142/77 H 95 Laboratory Results Short CBC 03/08/21 03/08/21 Range/Units 04:14 05:21 WBC Cancelled 5.83 Hgb Cancelled 12.9 L Hct Cancelled 37.0 L Plt Count Cancelled 57 L BMP 03/07/21 03/08/21 03/08/21 22:36 04:14 09:51 Sodium 131 L 134 L 136 Potassium 3.6 4.0 3.5 Chloride 101 109 H 106 Carbon Dioxide 25 22 27 BUN 15 14 15 Creatinine 0.78 0.58 L 0.65 Glucose 138 H 123 H 127 H Calcium 7.4 L 7.3 L 8.2 L Liver Function 03/08/21 Range/Units 04:14 Total Bilirubin 1.3 H (0.2-1) mg/dl AST 104 H (15-37) U/L ALT 50 (12-78) U/L Alkaline Phosphatase 54 (45-117) U/L Albumin 2.6 L (3.4-5.0) gm/dl Medications Administered Current Inpatient Medications Acetaminophen (Acetaminophen 325 Mg Tab) 650 mg PO Q4H PRN PRN Reason: Pain or Fever Stop: 04/06/21 14:18 Last Admin: 03/07/21 20:52 Dose: 650 mg Documented by: Al Hydrox/Mg Hydrox/Simethicone (Aluminum/Magnesium Susp 30 Ml Udc) 15 ml PO Q4H PRN PRN Reason: Dyspepsia Stop: 04/06/21 14:18 Aspirin (Aspirin 81 Mg Ectab) 81 mg PO DAILY DORIAN Stop: 04/07/21 08:59 Last Admin: 03/08/21 08:38 Dose: 81 mg Documented by: Atorvastatin Calcium (Atorvastatin 20 Mg Tab) 20 mg PO DAILY DORIAN Stop: 04/07/21 08:59 Last Admin: 03/08/21 08:38 Dose: 20 mg Documented by: Dextrose (Dextrose 50% 50 Ml Syringe) 25 - 50 ml IV UD PRN; Protocol PRN Reason: Hypoglycemia Protocol Stop: 04/06/21 14:18 Enoxaparin Sodium (Enoxaparin Inj 40 Mg/0.4 Ml Syr) 40 mg SQ Q24H DORIAN Stop: 04/06/21 21:59 Last Admin: 03/07/21 20:46 Dose: 40 mg Documented by: Glucagon (Glucagon For Inj 1 Mg Vial) 1 mg SQ UD PRN; Protocol PRN Reason: Hypoglycemia Protocol Stop: 04/06/21 14:18 Glucose (Glucose 10 Tabs/Tube) 4 - 8 tabs PO UD PRN; Protocol PRN Reason: Hypoglycemia Protocol Stop: 04/06/21 14:18 Glucose (Glucose 40% Gel 15 Gm Tube) 15 - 30 gm PO UD PRN; Protocol PRN Reason: Hypoglycemia Protocol Stop: 04/06/21 14:18 Doxycycline Hyclate 100 mg/ (Dextrose) 110 mls @ 50 mls/hr IV Q12H DORIAN Stop: 03/22/21 09:29 Last Infusion: 03/08/21 12:08 Dose: Infused Documented by: Insulin Aspart (Insulin Aspart 100 Units/Ml 3 Ml Pen) 0 units SC ACHS DORIAN Stop: 04/06/21 16:29 Last Admin: 03/08/21 12:25 Dose: 3 units Documented by: Levothyroxine Sodium (Levothyroxine Sodium 112 Mcg Tablet) 112 mcg PO DAILYBB DORIAN Stop: 04/07/21 06:29 Last Admin: 03/08/21 05:31 Dose: 112 mcg Documented by: Lorazepam (Lorazepam 0.5 Mg Tab) 0.5 mg PO TID PRN PRN Reason: Anxiety Stop: 04/06/21 14:18 Magnesium Hydroxide (Magnesium Hydroxide Susp 30 Ml Udc) 30 ml PO Q12H PRN PRN Reason: Constipation Stop: 04/06/21 14:18 Miscellaneous (Carbohydrates For Hypoglycemia ) 15 - 30 gm PO UD PRN PRN Reason: Hypoglycemia Protocol Stop: 04/06/21 14:18 Ondansetron HCl (Ondansetron Inj 2 Mg/Ml 2 Ml Vial) 4 mg IV Q6H PRN PRN Reason: Nausea Stop: 04/06/21 14:18 Polyethylene Glycol (Polyethylene (Miralax) 17 Gm Pack) 17 gm PO DAILY PRN PRN Reason: Constipation Stop: 04/06/21 14:18 Tamsulosin HCl (Tamsulosin Hcl 0.4 Mg Cap) 0.4 mg PO DAILY DORIAN Stop: 04/07/21 08:59 Last Admin: 03/08/21 08:38 Dose: 0.4 mg Documented by:
[2021-03-08] MEDS: ENOXAPARIN INJ 40 MG/0.4 ML SYR SQ SCH (21:03)
[2021-03-09] MEDS: LEVOTHYROXINE SODIUM 112 MCG TABLET PO SCH (05:49)
[2021-03-09 07:03] LABS: Hematocrit (blood only) 35.6 % (42-52); Hemoglobin 12.2 g/dL (14.0-18.0); Mean Corpuscular Hemoglobin 29.6 pg (25-34); Mean Corpuscular Hgb Conc 34.3 g/dL (32-36); Mean Corpuscular Volume 86.4 fL (80-100); RDW Coefficient of Variation 14.4 % (11.5-14.5); RDW Standard Deviation 45.5 fL (36.4-46.3); Red Blood Count 4.12 M/uL (4.7-6.1); White Blood Count 5.31 K/uL (4.8-10.8)
[2021-03-09 07:17] LABS: Mean Platelet Volume 10.9 fL (7.4-10.4); Platelet Count 72 K/uL (130-400)
[2021-03-09 07:43] LABS: Albumin Level 2.7 gm/dl (3.4-5.0); BUN Creatinine Ratio 19.3 (10-20); Calcium 8.2 mg/dl (8.5-10.1); Creatinine Clr Calc Pharmacy 112.7 ml/min; Est GFR (African American) 113.4 ml/min; Est GFR (Non-African American) 97.8 ml/min; Magnesium 2.6 mg/dl (1.8-2.4); Potassium 3.7 mmol/L (3.5-5.1)
[2021-03-09 07:53] LABS: Albumin Globulin Ratio 0.9 (0.9-2); Bilirubin,Total 0.7 mg/dl (0.2-1); Globulin 3.1 gm/dl (2.5-4.0); Phosphorus 2.4 mg/dl (2.5-4.9); Total Protein 5.8 gm/dl (6.4-8.2)
[2021-03-09 08:02] LABS: ALC (manual) 2.31 K/uL (1.2-3.4); ANC (manual) 2.58 K/uL (1.4-6.5); Basophils # (manual) 0.05 K/uL (0-0.2); Basophils % (manual) 0.9 %; Echinocytes 1+; Eosinophils # (manual) 0.05 K/uL (0-0.5); Eosinophils % (manual) 0.9 %; Lymphocytes # (manual) 0.65 K/uL (1.2-3.4); Lymphocytes % (manual) 12.2 %; Monocytes # (manual) 0.32 K/uL (0.11-0.59); Monocytes % (manual) 6.1 %; Neutrophils # (manual) 2.58 K/uL (1.4-6.5); Neutrophils % (manual) 48.6 %; Reactive Lymphocytes # (manual) 1.66 K/uL; Reactive Lymphocytes % (manual) 31.3 %
[2021-03-09] MEDS: ASPIRIN 81 MG ECTAB PO SCH (08:11)
[2021-03-09] MEDS: ATORVASTATIN 20 MG TAB PO SCH (08:11)
[2021-03-09] MEDS: TAMSULOSIN HCL 0.4 MG CAP PO SCH (08:12)
[2021-03-09] MEDS: INSULIN ASPART 100 UNITS/ML 3 ML PEN SC SCH ×2 (08:14→12:24)
[2021-03-09] MEDS: DOXYCYCLINE HYCLATE 100 MG in DEXTROSE 5% 100 ML IV SCH (08:19)
--- NOTE | 2021-03-09 11:11 | Hospitalist Progress Note ---
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 Pt being admitted due to possible sepsis. Elevated temp in clinic 102F, and tachycardia in ED. His WBC & RR WNL. Pt with other indicators of sepsis including lactic acidosis, low platelets, elevated total bili and procalcitonin. Received 2 L of IVF in ED. 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 rash, last known tick bite 5 days ago No evidence of fever and/or chills We will continue doxycycline for a total of 10 days (5) Acute hyponatremia: hyponatremia Hypochloremia Na 126 likely in setting of acute dehydration due to poor po intake serum osm-low at 269, urine osm-high at 9 1 9, urine na-23 received 2L of IVF Sodium has been improving and is normalized Sodium level remains normal (6) Thrombocytopenia: plt 85 2/2 to anaplasmosis Platelet count has decreased to 57 Platelet has been improving and it is at 72 as of 03/09/2021 (7) T2DM (type 2 diabetes mellitus): Hold Metformin Insulin sliding scale per protocol A1c in a.m., last on 11/02/2020 6.3 (8) Hypothyroidism: Continue levothyroxine Check TSH-normal (9) HLD (hyperlipidemia): Continue atorvastatin Monitor LFTs, AST mildly elevated at 94 (10) DVT prophylaxis: SQ Lovenox, monitor plt Dispo:PCU PCP: Dr. Mayra Bearden FULL CODE Will be discharged home this afternoon Admission and Anticipated Discharge Date Admission Date: March 07, 2021 Subjective 03/08/2021 The patient was seen and examined in telemetry unit He was admitted with extreme weakness and tiredness with a history of tick bite in the right leg He was noted to have anaplasmosis and has been feeling much better since admission Denies any significant symptoms 03/09/2021 The patient was seen and examined in telemetry unit He has been feeling a lot better and denies any significant symptoms today No fever, no chills and denies any weakness He has been ambulating in the hallway without any difficulties Review of Systems Review of Systems: All systems reviewed and are unremarkable except as noted below Musculoskeletal: no muscle weakness Neurologic: no generalized weakness Physical Exam Physical Exam: Ambulating in the room without any problem Constitutional: well developed and well nourished; not ill appearing Eyes: PERRL, conjunctivae normal, anicteric sclerae ENMT: external ear and nose normal, oropharynx normal Neck: trachea midline, no thyromegaly Respiratory: no respiratory distress Auscultation: lungs clear to auscultation bilaterally Cardiovascular: Rate/Rhythm: regular rate and regular rhythm Heart Sounds: no murmur Extremities: no edema Gastrointestinal (Abdomen): Inspection/Auscultation: normal bowel sounds; abdomen not distended Percussion/Palpation: abdomen soft; abdomen nontender Musculoskeletal: No acute arthritis in any joint Neurologic: Alert, awake and oriented x3. No focal sensory or motor deficit appreciated Psychiatric: A+Ox3, euthymic affect Lymphatic: no cervical or axillary lymphadenopathy Results & Data Results & Data ([facility]) Vital Signs (Past 12 Hours) Vital Signs Temp Pulse Resp BP Pulse Ox 03/09/21 11:03 36.5 C 84 19 123/73 97 03/09/21 07:25 36.6 C 80 20 138/73 97 03/09/21 04:14 36.8 C 86 16 149/78 H 96 03/08/21 23:54 37.1 C 77 16 142/78 H 96 Laboratory Results Short CBC 03/09/21 Range/Units 06:50 WBC 5.31 (4.8-10.8) K/uL Hgb 12.2 L (14.0-18.0) g/dL Hct 35.6 L (42-52) % Plt Count 72 L (130-400) K/uL BMP 03/09/21 06:50 Sodium 137 Potassium 3.7 Chloride 106 Carbon Dioxide 29 BUN 12 Creatinine 0.64 Glucose 104 H Calcium 8.2 L Liver Function 03/09/21 Range/Units 06:50 Total Bilirubin 0.7 D (0.2-1) mg/dl AST 83 H (15-37) U/L ALT 53 (12-78) U/L Alkaline Phosphatase 55 (45-117) U/L Albumin 2.7 L (3.4-5.0) gm/dl Medications Administered Current Inpatient Medications Acetaminophen (Acetaminophen 325 Mg Tab) 650 mg PO Q4H PRN PRN Reason: Pain or Fever Stop: 04/06/21 14:18 Last Admin: 03/07/21 20:52 Dose: 650 mg Documented by: Al Hydrox/Mg Hydrox/Simethicone (Aluminum/Magnesium Susp 30 Ml Udc) 15 ml PO Q4H PRN PRN Reason: Dyspepsia Stop: 04/06/21 14:18 Aspirin (Aspirin 81 Mg Ectab) 81 mg PO DAILY DORIAN Stop: 04/07/21 08:59 Last Admin: 03/09/21 08:11 Dose: 81 mg Documented by: Atorvastatin Calcium (Atorvastatin 20 Mg Tab) 20 mg PO DAILY DORIAN Stop: 04/07/21 08:59 Last Admin: 03/09/21 08:11 Dose: 20 mg Documented by: Dextrose (Dextrose 50% 50 Ml Syringe) 25 - 50 ml IV UD PRN; Protocol PRN Reason: Hypoglycemia Protocol Stop: 04/06/21 14:18 Enoxaparin Sodium (Enoxaparin Inj 40 Mg/0.4 Ml Syr) 40 mg SQ Q24H DORIAN Stop: 04/06/21 21:59 Last Admin: 03/08/21 21:03 Dose: 40 mg Documented by: Glucagon (Glucagon For Inj 1 Mg Vial) 1 mg SQ UD PRN; Protocol PRN Reason: Hypoglycemia Protocol Stop: 04/06/21 14:18 Glucose (Glucose 10 Tabs/Tube) 4 - 8 tabs PO UD PRN; Protocol PRN Reason: Hypoglycemia Protocol Stop: 04/06/21 14:18 Glucose (Glucose 40% Gel 15 Gm Tube) 15 - 30 gm PO UD PRN; Protocol PRN Reason: Hypoglycemia Protocol Stop: 04/06/21 14:18 Doxycycline Hyclate 100 mg/ (Dextrose) 110 mls @ 50 mls/hr IV Q12H DORIAN Stop: 03/22/21 09:29 Last Infusion: 03/09/21 10:29 Dose: Infused Documented by: Insulin Aspart (Insulin Aspart 100 Units/Ml 3 Ml Pen) 0 units SC ACHS [facility] Stop: 04/06/21 16:29 Last Admin: 03/09/21 08:14 Dose: 1 units Documented by: Levothyroxine Sodium (Levothyroxine Sodium 112 Mcg Tablet) 112 mcg PO DAILYBB [facility] Stop: 04/07/21 06:29 Last Admin: 03/09/21 05:49 Dose: 112 mcg Documented by: Lorazepam (Lorazepam 0.5 Mg Tab) 0.5 mg PO TID PRN PRN Reason: Anxiety Stop: 04/06/21 14:18 Magnesium Hydroxide (Magnesium Hydroxide Susp 30 Ml Udc) 30 ml PO Q12H PRN PRN Reason: Constipation Stop: 04/06/21 14:18 Miscellaneous (Carbohydrates For Hypoglycemia ) 15 - 30 gm PO UD PRN PRN Reason: Hypoglycemia Protocol Stop: 04/06/21 14:18 Ondansetron HCl (Ondansetron Inj 2 Mg/Ml 2 Ml Vial) 4 mg IV Q6H PRN PRN Reason: Nausea Stop: 04/06/21 14:18 Polyethylene Glycol (Polyethylene (Miralax) 17 Gm Pack) 17 gm PO DAILY PRN PRN Reason: Constipation Stop: 04/06/21 14:18 Tamsulosin HCl (Tamsulosin Hcl 0.4 Mg Cap) 0.4 mg PO DAILY [facility] Stop: 04/07/21 08:59 Last Admin: 03/09/21 08:12 Dose: 0.4 mg Documented by:
--- NOTE | 2021-03-10 08:30 | Discharge Summary ---
Date of Service March 10, 2021 Admission HPI Per Admitting Provider This is a 70 yr old M who has a significant PMH of T2DM, HLD, and hypothyroidism who presents to ED due to feeling tired and weak x 5 days. Sx started on Friday when he became increasingly weak and tired. His pulled off a tick on his right leg. She states it was attached but wasn't engorged. Overall poor appetite and at bedside states, "not acting himself." She feels his thinking is off and having trouble concentrating. She notices he is getting more confused. He denies fever but did have fever in clinic today of 102. Pt states he is very uncomfortable. Occasionally feels dizzy. He c/o increased urinary urgency. He denies chills, sweats, syncope, cough, URI sx, chest pain, sob, palpitations, diarrhea, abdominal pain, dysuria and hematuria. He has never felt like this in the past. Patient was seen in clinic today secondary to above symptoms and was referred to ED due to concern for possible urosepsis secondary to abnormal urinalysis and patient meeting SIRS criteria. Of significance he was also seen in clinic on 02/23 secondary to urinary hesitancy in which he was started on Flomax. In ED patient remained hemodynamically stable although he was tachycardic. Patient did meet sepsis criteria on admission secondary to documented fever in clinic, tachycardia, thrombocytopenia, lactic acid 2.5 and total bili 2.1. His procalcitonin was mildly elevated at 0.42. His urinalysis was positive for protein, nitrates, bilirubin leukocyte esterase, RBC. Chest x- ray was negative for acute abnormality. His Covid 19 swab was negative. In ED he received 2 L of IV fluid as well as 2 g IV Rocephin. Admission Exam Per Admitting Provider Physical Exam: Constitutional: WD/WN, vitals as above, appears uncomfortable but no acute distress NAD, sitting up in bed, answers questions appropriately Head: Normocephalic, Atraumatic Eyes: PERRL, conjunctivae normal, anicteric sclerae ENMT: external ear and nose normal, oropharynx normal Neck: trachea midline, no thyromegaly normal visual inspection Respiratory: normal respiratory effort, lungs clear to auscultation, no wheeze, rales, rhonchi. Normal insp/exp effort, no accessory muscle use Cardiovascular: Tachycardic rate, regular rhythm, no murmur, no edema Vessels: no JVD or carotid bruit Chest: normal inspection of chest Abdomen: Protuberant abdomen, normal bowel sounds, soft, nontender, no hepatosplenomegaly appreciated Musculoskeletal: no cyanosis or clubbing, extremities motor strength 5/5 Skin: l ividio reticularis of lower ext, no rashes, warm and dry normal turgor Neurologic: PERRL, EOMI, accommodation nl, no face palsy, no dysarthria CN's II-XI intact bilaterally and moves all extremities Psychiatric: A+Ox3 except does not know the year, euthymic affect Lymphatic: no cervical or axillary lymphadenopathy : deferred Principal Diagnosis Anaplasmosis, sepsis secondary to anaplasmosis, hyponatremia, type 2 diabetes, thrombocytopenia Discharge Exam Constitutional well developed and well nourished; not ill appearing Eyes PERRL, conjunctivae normal, anicteric sclerae ENMT external ear and nose normal, oropharynx normal Neck trachea midline, no thyromegaly Respiratory no respiratory distress Auscultation: lungs clear to auscultation bilaterally Cardiovascular Rate/Rhythm: regular rate and regular rhythm Heart Sounds: no murmur Extremities: no edema Gastrointestinal (Abdomen) Inspection/Auscultation: normal bowel sounds; abdomen not distended Percussion/Palpation: abdomen soft; abdomen nontender Psychiatric A+Ox3, euthymic affect Lymphatic no cervical or axillary lymphadenopathy Discharge Data Allergies Allergy/AdvReac Type Severity Reaction Status Date / Time No Known Allergies Allergy Unverified 03/07/21 11:49 Consultations 03/07/21 13:03 ED Decision to Admit Stat Hospital Course (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 Pt being admitted due to possible sepsis. Elevated temp in clinic 102F, and tachycardia in ED. His WBC & RR WNL. Pt with other indicators of sepsis including lactic acidosis, low platelets, elevated total bili and procalcitonin. Received 2 L of IVF in ED. 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 rash, last known tick bite 5 days ago No evidence of fever and/or chills We will continue doxycycline for a total of 10 days (5) Acute hyponatremia: hyponatremia Hypochloremia Na 126 likely in setting of acute dehydration due to poor po intake serum osm-low at 269, urine osm-high at 9 1 9, urine na-23 received 2L of IVF Sodium has been improving and is normalized Sodium level remains normal (6) Thrombocytopenia: plt 85 11/14 to anaplasmosis Platelet count has decreased to 57 Platelet has been improving and it is at 72 as of 03/09/2021 (7) T2DM (type 2 diabetes mellitus): Hold Metformin Insulin sliding scale per protocol A1c in a.m., last on 11/02/2020 6.3 (8) Hypothyroidism: Continue levothyroxine Check TSH-normal (9) HLD (hyperlipidemia): Continue atorvastatin Monitor LFTs, AST mildly elevated at 94 (10) DVT prophylaxis: SQ Lovenox, monitor plt Dispo:PCU PCP: Dr. Mayra Bearden FULL CODE Will be discharged home this afternoon Total Time Total Time Spent Total Time Spent (In Minutes): 35 minutes Total Time Includes: Examination of the Patient, Discharge Planning, Medication Reconciliation and Communication With Other Providers Discharge Plan Discharge Items Patient Disposition: Home - Self-Care Reason For Visit: SEPSIS,HYPONATREMIA Discharge Diagnosis: Anaplasmosis, sepsis secondary to anaplasmosis, hyponatremia, type 2 diabetes, thrombocytopenia Condition on Discharge: Good Activity: Resume your previous activity Non-emergency contact: Primary Care Provider Call non-emergency contact if: you have any medication questions and your symptoms worsen Follow-up/Referrals: Chad Oh DO [Primary Care Provider] - (Date & Time 03/14/2021 1:40 PM Provider Manuel Bearden DO [facility] ) Diet: Carb Consistent or DM2 Addtl Attending Provider Instructions: Please take precaution to avoid fall Finish the course of antibiotic Drink plenty of fluid Pending Studies at Discharge: No Stand-Alone Forms: My [facility], Smoking Cessation Medications and DC Order Prescriptions: New doxycycline hyclate 100 mg capsule 100 mg PO BID 7 Days Qty: 14 RF: 0 Continued multivitamin Tablet 1 tab PO DAILY RF: 0 atorvastatin 20 mg tablet 20 mg PO DAILY RF: 0 aspirin 81 mg Tablet,Delayed Release (Dr/Ec) 81 mg PO DAILY RF: 0 lorazepam 0.5 mg Tablet 0.5 mg PO TID PRN (Reason: Anxiety) RF: 0 tamsulosin 0.4 mg capsule 0.4 mg PO DAILY RF: 0 levothyroxine 112 mcg tablet 112 mcg PO DAILY RF: 0 metformin 750 mg tablet extended release 24 hr 750 mg PO DAILY RF: 0 Discharge Orders: Discharge Order (Routine); Ordered 03/09/21 Ordered By: Zoey Reza/Other Patient Handouts: Managing Type 2 Diabetes, Sepsis, A1C Admission Data Admit Date/Time: 03/07/21 13:00 Attending Provider: Zoey Carrizales Admit Provider: Kel Dupree Primary Care Provider: Chad Oh Other Providers: Kel Dupree Other Interventions: Discharge Summary Assessment (RN) Last Done: 03/09/21 13:33
== END 2021-03-09 14:16 | disposition home or self-care (01) | DRG 872 ==
LOC: ED 10:47 → 2S 13:00 → SUATTDRO 13:00 → 2S 13:52